=== PATIENT | male | born 1980 | race Caucasian/White ===

== ENCOUNTER 2021-11-18 19:22 | Inpatient (IN) | payer OTHER ==
[~2021-11-18] VITALS: Ht 180.3 cm; Wt 70.3 kg
--- NOTE | 2021-11-18 19:44 | NUR ---
Pt to ER w/ c/o left-sided chest pain 5/10 x 2 weeks w/ SOB, SEE, and dizziness. Pt states radiates to left arm and left 1st finger "feels numb" when this occurs. Pt ambualtes with strong steady gait. Speak sin compelte sentences. Normal skin color for ethnicity.
[2021-11-18 19:47] VITALS: BP_SYST 150
[2021-11-18] MEDS ORDERED: NITROGLYCERIN 1 INCH (GM) OINT. TP ONE (21:40)
[2021-11-18] MEDS ORDERED: MORPHINE 4 MG INJ. 4 MG/ML VIAL IVP ONE (21:40)
[2021-11-18] MEDS ORDERED: ENOXAPARIN SODIUM 60 MG/0.6 ML SYRINGE SUBCUT SCH (21:45)
[2021-11-18 22:08] LABS: BASOPHILS % (AUTO) 0.5 % (0.0-2.0); EOSINOPHILS # (AUTO) 0.1 K/uL (0.0-0.4); EOSINOPHILS % (AUTO) 0.9 % (0.0-4.0); HEMATOCRIT 43.5 % (36-54); HEMOGLOBIN 14.9 g/dL (14.0-18.0); LYMPHOCYTES # (AUTO) 2.3 K/uL (1.0-5.5); LYMPHOCYTES % (AUTO) 35.5 % (20.5-51.5); MEAN CORPUSCULAR HEMOGLOBIN 31 pg (27-31); MEAN CORPUSCULAR HGB CONC 34 % (32-36); MEAN CORPUSCULAR VOLUME 90 fL (79.0-98.0); MONOCYTES # (AUTO) 0.4 K/uL (0.0-1.0); MONOCYTES % (AUTO) 5.6 % (1.7-9.3); NEUTROPHILS # (AUTO) 3.8 K/uL (1.8-7.7); NEUTROPHILS % (AUTO) 57.5 % (40.0-70.0); PLATELET COUNT (AUTO) 255 K/uL (130-430); RED BLOOD CELL COUNT(AUTO) 4.85 MIL/uL (4.2-6.2); RED CELL DISTRIBUTION WIDTH 12.5 % (9.0-15.0); WHITE BLOOD COUNT (AUTO) 6.5 K/uL (4.8-10.8)
[2021-11-18 22:09] LABS: ANION GAP 8 (5-15); CALCIUM 10.1 mg/dL (8.4-11.0); CHLORIDE 103 mmol/L (98-107); CREATININE 1.14 mg/dL (0.55-1.30); GLUCOSE 98 mg/dL (70-99); POTASSIUM 4.2 mmol/L (3.5-5.1); SODIUM SERUM 138 mmol/L (136-145); UREA NITROGEN, BLOOD 23 mg/dL (8-21)
[2021-11-18 22:11] LABS: GFR AFRICAN AMERICAN 91 mL/min (>90)
[2021-11-18 22:18] LABS: ALANINE AMINOTRANSFERASE 45 U/L (12-78); ASPARTATE AMINOTRANSFERASE 35 U/L (10-37); TOTAL BILIRUBIN 0.3 mg/dL (0.0-1.0)
[2021-11-19] MEDS ORDERED: ASPIRIN 325 MG TABLET ONE (01:40)
[2021-11-19] MEDS ORDERED: ASPIRIN 325 MG TABLET PO ONE (01:45)
--- NOTE | 2021-11-19 03:12 | NUR ---
Admit bed requested Patient will be admitted to care of . Admitted to TELEMETRY unit. Diagnosis CHEST PAIN Inpatient (Yes or No) YES Observation (Yes or No) Orientation concerns or request close to nursing station (Yes or No) NO Covid Status - On vent or bipap NO Isolation requirements NO Needs a sitter From Home (Yes or if No enter name of facility) YES Requires Dialysis (Yes or No) NO Med Rec Completed (Yes of No) PENDING
--- NOTE | 2021-11-19 04:32 | NUR ---
PT BIB MOTHER, WITH COMPLAINT OF CHEST PAIN AND NUMBNESS TO LEFT ARM. PLACED PT ON MONITOR VS ARE WITHIN NORMAL LIMITS, PT IS IN BED WITH BED LOWERED, LOCKED AND RAILS UP. PT DENIES ANY CHEST PAIN OR TIGHTNESS OR ARM NUMBNESS AT TIME. WILL CONTINUE TO MONITOR
--- NOTE | 2021-11-19 07:30 | NUR ---
Report received from Juan DENNIS; assumed cares at this time.
[2021-11-19] MEDS ORDERED: FINA5TAB11 PO (07:36)
--- NOTE | 2021-11-19 08:43 | NUR ---
Report given by Phyllis DENNIS. Awaiting admission.
--- NOTE | 2021-11-19 08:55 | NUR ---
Patient on monitor- noted to have periods of bradycardia (48) and then increases to 70. States that he has chest pain/discomfort- dull ache. VSS. ER MD noted- orders given.
[2021-11-19] MEDS: NITROGLYCERIN 0.4 MG TAB.SUBL SL PRN ×2 (09:01→09:18)
--- NOTE | 2021-11-19 09:06 | NUR ---
Pain unchanged- VSS- 127/78, 60 18 99%. Second NTG given.
--- NOTE | 2021-11-19 09:08 | NUR ---
Noticed that patient did not have IV access- asked students to place it before admission.
--- NOTE | 2021-11-19 09:17 | NUR ---
Patient stated pain the same 10/14. BP dropped to 118/81. NTG held.
--- NOTE | 2021-11-19 09:20 | NUR ---
MD aware that third ntg held- and no change. Order for OTC pain med to be written.
--- NOTE | 2021-11-19 09:28 | NUR ---
Report to Jessica springer to send.
[2021-11-19 10:03] VITALS: BP_SYST 138
[2021-11-19 11:00] VITALS: BP_SYST 138
--- NOTE | 2021-11-19 11:00 | NUR ---
Recd pt awake and alert, music journalist placed on pt. SR at 60. pt denies chest pain, but c/o tingling of left arm, pt refusing tylenol or nitro at this time. Admission assessment done and charted. Father at the bedside. Dr Stubbs at the bedside assessing pt. Echo done at the bedside and pt tolerated well. Oriented pt surroundings, call light placed within reach. And instructed pt to call if he needs anything, and pt verbalized understanding. Will continue to monitor pt closely.
[2021-11-19] MEDS ORDERED: ACETAMINOPHEN 325 MG TABLET PO PRN ×2 (11:30→12:30)
[2021-11-19 12:00] VITALS: BP_SYST 133
[2021-11-19] MEDS ORDERED: ONDANSETRON HCL 4 MG/2 ML VIAL IVP PRN (12:30)
[2021-11-19] MEDS ORDERED: NALOXONE HCL 0.4 MG/ML AMP (NARCAN) IVP PRN ×2 (12:30)
[2021-11-19] MEDS ORDERED: HYDROcodone/ACETAMIN 5-325 MG TAB (NORCO/ VICODIN) PO PRN (12:30)
[2021-11-19] MEDS ORDERED: HYDROcodone/ACETAMIN 10-325 MG TAB PO PRN (12:30)
[2021-11-19] MEDS ORDERED: LORazepam 2 MG/ML VIAL IVP PRN (12:30)
[2021-11-19] MEDS ORDERED: NORMAL SALINE 5 ML DISP.SYRIN IVF SCH (14:00)
[2021-11-19] MEDS: NORMAL SALINE 5 ML DISP.SYRIN IVF SCH ×2 (14:00→21:11)
[2021-11-19 16:00] VITALS: BP_SYST 134
[2021-11-19 20:00] VITALS: BP_SYST 131
--- NOTE | 2021-11-19 20:00 | NUR ---
Opening Notes Received report from day nurse; patient is alert and comfortable. Mother is at bedside. Fall and safety precautions initiated with bed at lowest level, bed alarm activated, call light within reach.
[2021-11-19] MEDS ORDERED: FINASTERIDE 5 MG TABLET (PROSCAR) PO SCH (21:00)
[2021-11-19 23:58] VITALS: BP_SYST 132
[2021-11-20] VITALS: BP_SYST 131
--- NOTE | 2021-11-20 01:30 | NUR ---
CONSULTATION CALLED FOR DR. PERDUE FOR CONSULT OF CHEST PAIN ORDER BY DR. HARTLEYIUM SPOKE WITH WENDY
[2021-11-20] MEDS: NORMAL SALINE 5 ML DISP.SYRIN IVF SCH ×2 (06:52→15:27)
[2021-11-20 07:06] LABS: BASOPHILS % (AUTO) 0.5 % (0.0-2.0); EOSINOPHILS # (AUTO) 0.1 K/uL (0.0-0.4); EOSINOPHILS % (AUTO) 2.2 % (0.0-4.0); HEMATOCRIT 42.1 % (36-54); HEMOGLOBIN 14.6 g/dL (14.0-18.0); LYMPHOCYTES # (AUTO) 2.7 K/uL (1.0-5.5); LYMPHOCYTES % (AUTO) 47.8 % (20.5-51.5); MEAN CORPUSCULAR HEMOGLOBIN 31 pg (27-31); MEAN CORPUSCULAR HGB CONC 35 % (32-36); MEAN CORPUSCULAR VOLUME 89 fL (79.0-98.0); MONOCYTES # (AUTO) 0.4 K/uL (0.0-1.0); MONOCYTES % (AUTO) 6.4 % (1.7-9.3); NEUTROPHILS # (AUTO) 2.4 K/uL (1.8-7.7); NEUTROPHILS % (AUTO) 43.1 % (40.0-70.0); PLATELET COUNT (AUTO) 235 K/uL (130-430); RED BLOOD CELL COUNT(AUTO) 4.72 MIL/uL (4.2-6.2); RED CELL DISTRIBUTION WIDTH 12.6 % (9.0-15.0); WHITE BLOOD COUNT (AUTO) 5.5 K/uL (4.8-10.8)
[2021-11-20 07:50] LABS: CALCIUM 9.8 mg/dL (8.4-11.0); CREATININE 1.14 mg/dL (0.55-1.30); PHOSPHORUS 4.3 mg/dL (2.7-4.5); POTASSIUM 3.9 mmol/L (3.5-5.1); THYROID STIMULATING HORMONE 2.26 uIu/mL (0.36-3.74)
[2021-11-20 08:00] VITALS: BP_SYST 120
--- NOTE | 2021-11-20 08:00 | NUR ---
Initial notes Eating breakfast .Awake, alert. denies any chest pain or discomfort. ambulate to the bathroom. Enc to call for help as needed.
[2021-11-20] MEDS ORDERED: ASPIRIN 81 MG TAB.CHEW PO SCH (09:00)
[2021-11-20] MEDS ORDERED: ASA81 PO (11:51)
[2021-11-20] MEDS ORDERED: NITSL SL (11:51)
[2021-11-20 12:00] VITALS: BP_SYST 130
--- NOTE | 2021-11-20 15:50 | NUR ---
DRYWALL PROFESSIONAL DR PERDUE WAS CALLED, RE: CLEARANCE TO DISCHARGE TO HOME. SPOKE TO BHUPENDRA
[2021-11-20 15:55] VITALS: BP_SYST 125
[2021-11-20 15:58] VITALS: BP_SYST 125
--- NOTE | 2021-11-20 16:40 | NUR ---
Discharge pt home accompanied by family, denies any chest pain or shortness of breath. discharge instruction and medications discussed with patient. verbalize understanding. IVL removed
== END 2021-11-20 16:30 | disposition home or self-care (01) | DRG 203 ==
LOC: SED 19:22 → STU 11-19 01:48
PROVIDERS: ADMIT Preventive Medicine Preventive Medicine/Occupational Environmental Medicine; ATTEND Preventive Medicine Preventive Medicine/Occupational Environmental Medicine
DX: R07.89 Other chest pain (principal); E83.41 Hypermagnesemia; Z20.822 Contact with and (suspected) exposure to COVID-19; E78.5 Hyperlipidemia, unspecified; F41.9 Anxiety disorder, unspecified; I10 Essential (primary) hypertension; R79.89 Other specified abnormal findings of blood chemistry; N40.0 Benign prostatic hyperplasia without lower urinary tract symptoms; L03.311 Cellulitis of abdominal wall; N49.2 Inflammatory disorders of scrotum; E66.01 Morbid (severe) obesity due to excess calories; G47.33 Obstructive sleep apnea (adult) (pediatric); Z79.899 Other long term (current) drug therapy; Z79.82 Long term (current) use of aspirin; Z98.84 Bariatric surgery status; Z68.21 Body mass index [BMI] 21.0-21.9, adult
CPT/HCPCS: 36415; 71045; 80048; 80053; 80061; 83735; 83880; 84100; 84443; 84484; 85025; 85379; 93005; 93017; 93306; 99285; G0378; J1650